=== PATIENT | female | born 1975 | race Caucasian/White ===

== ENCOUNTER → 2018-09-05 13:27 | Outpatient (CLI) | payer OTHER, SELFPAY ==
[2018-09-05 09:39] VITALS: BMI 36.2
[2018-09-07 11:39] LABS: HPV APTIMA, High Risk Negative (Negative)
== END ==
PROVIDERS: Referring Provider Nurse Practitioner Women's Health; Visit Provider Nurse Practitioner Women's Health
DX: Z12.4 Encounter for screening for malignant neoplasm of cervix (principal); N89.8 Other specified noninflammatory disorders of vagina
CPT/HCPCS: 87070; 87205; 87624; 88175; G0145

== ENCOUNTER → 2024-02-08 | Outpatient (CLI) | payer BC, OTHER, SELFPAY ==
[2024-02-08 16:31] LABS: Vitamin D,25 Hydroxy 21.7 ng/mL
[2024-02-15 14:08] LABS: HPV APTIMA, High Risk Negative (Negative)
== END | disposition home or self-care (01) ==
PROVIDERS: PCP Family Medicine; Referring Provider Nurse Practitioner Women's Health; Visit Provider Nurse Practitioner Women's Health
DX: Z12.4 Encounter for screening for malignant neoplasm of cervix (principal); Z80.3 Family history of malignant neoplasm of breast; Z80.41 Family history of malignant neoplasm of ovary; Z13.21 Encounter for screening for nutritional disorder
CPT/HCPCS: 82306; 87624; 88175; G0145

== ENCOUNTER → 2024-03-01 | Outpatient (CLI) | payer BC, OTHER, SELFPAY ==
[2024-03-01 15:38] LABS: Estradiol < 11.0 pg/mL; Follicle Stimulating Hormone 85.9 mIU/mL
== END | disposition home or self-care (01) ==
LOC: LAB 14:19
PROVIDERS: PCP Family Medicine; Referring Provider Obstetrics & Gynecology; Visit Provider Obstetrics & Gynecology
DX: N95.1 Menopausal and female climacteric states (principal); Z80.41 Family history of malignant neoplasm of ovary
CPT/HCPCS: 36415; 82670; 83001

== ENCOUNTER → 2024-03-13 | Outpatient (CLI) | payer BC, OTHER, SELFPAY ==
--- NOTE | 2024-03-13 15:14 | US_ITS ---
STUDY: ULTRASOUND OF THE FEMALE PELVIS - COMPLETE REASON FOR EXAM: Female, 48 years old. Climacteric, family history of ovarian cancer, post menopausal LMP: The patient is postmenopausal. TECHNIQUE: Transabdominal and Transvaginal TECHNICAL QUALITY: Adequate. COMPARISON: None. FINDINGS: The uterus is anteverted and is in a midline position. The uterus measures 9 cm x 5.4 cm x 4.3 cm. There is a Nabothian cyst of the cervix. The endometrium is slightly thickened and measures 4.7 mm in thickness, and is heterogeneous (striated). There is no demonstrated endometrial mass. Heterogeneous appearance of the myometrium although no focal fibroid is seen. I.U.D. - The patient does not have an I.U.D. The right ovary is visualized. The right ovary measures 2.4 cm x 2.3 cm x 1.6 cm. There is no right ovarian cyst or ovarian mass. There is no visualized right adnexal mass or complex lesion. There is normal arterial and normal venous vascularity. The left ovary is visualized. The left ovary measures 1.9 cm x 2.2 cm x 1.5 cm. There is no left ovarian cyst or ovarian mass. There is no visualized left adnexal mass or complex lesion. There is normal arterial and normal venous vascularity. There is no fluid in the cul-de-sac. The pre void volume of the bladder was 575 ml. US/Pelvic w/ Transvaginal IMPRESSION: Heterogeneous appearance of the myometrium although no focal fibroid is seen. Thickening of the endometrium for the postmenopausal state. Electronically Signed: Adis Beebe MD at 14:02 EDT ,
== END | disposition home or self-care (01) ==
LOC: US 15:13
PROVIDERS: PCP Family Medicine; Referring Provider Obstetrics & Gynecology; Visit Provider Obstetrics & Gynecology
DX: N95.1 Menopausal and female climacteric states (principal); Z80.41 Family history of malignant neoplasm of ovary
CPT/HCPCS: 76830; 76856

== ENCOUNTER → 2025-02-21 | Outpatient (CLI) | payer BC, OTHER, SELFPAY ==
--- NOTE | 2025-02-21 14:30 | BI_ITS ---
EXAM: SCRN MAMM (CAD)W/XENA BILAT DATE: 02/21/2025 CLINICAL HISTORY: F, Age 49 y/o , SCREEN Mother with breast cancer. Prior bilateral breast reduction surgery. TECHNIQUE: Procedure Code: [id number] Modality: MG Procedure: SCRN MAMM (CAD)W/XENA BILAT COMPARISON: Prior exam(s) dated outside examination dated January 07, 2022.. FINDINGS: TISSUE DENSITY: There are scattered areas of fibroglandular density. Bilateral Breast Mammographic Findings: No significant masses, calcifications or other abnormalities are identified. Stable 4.5 mm calcified nodule in the retro areolar region of the left breast. No suspicious masses, areas of developing architectural distortion, or suspicious calcifications. There has been no significant interval change. BI/SCRN MAMM (CAD)W/XENA BILAT IMPRESSION: Stable screening bilateral mammogram. OVERALL FINAL ASSESSMENT BI-RADS 2: BENIGN RECOMMENDATION: Routine annual follow-up in 1 Year A letter with findings and recommendations will be mailed to the patient. Reading Location: [facility]
== END | disposition home or self-care (01) ==
LOC: OPBI 14:17
PROVIDERS: PCP Family Medicine; Referring Provider Nurse Practitioner Women's Health; Visit Provider Nurse Practitioner Women's Health
DX: Z12.31 Encounter for screening mammogram for malignant neoplasm of breast (principal)
CPT/HCPCS: 77063; 77067